=== PATIENT | female | born 1980 | race Caucasian/White ===

== ENCOUNTER 2019-05-13 15:27 | Emergency (ER) | payer OTHER ==
[2019-05-13 15:39] VITALS: BMI 29.0
[2019-05-13] MEDS ORDERED: FAMOTIDINE 20 MG/50 ML IVPB 20 MG/50 ML MG IVPB ONE ×2 (16:23→16:42)
[2019-05-13] MEDS ORDERED: ONDANSETRON 4 MG/2 ML VIAL IVPUSH ONE (16:23)
[2019-05-13] MEDS ORDERED: SODIUM CHLORIDE 1,000 ML IV STA (16:23)
[2019-05-13] MEDS ORDERED: ONDANSETRON 4 MG/2 ML VIAL ONE (16:29)
[2019-05-13 16:48] LABS: EOS % 2.1 % (0-4.5); RDW 13.5 % (11.6-15.6)
[2019-05-13 16:54] LABS: BASO % 0.5 % (0-2.0); HEMATOCRIT 39.8 % (32.4-45.2); HEMOGLOBIN 13.3 GM/dL (10.7-15.3); LYMPH % 31.3 % (8-40); MCH 29.2 pg (25.7-33.7); MCHC 33.5 g/dl (32.0-36.0); MEAN CELL VOLUME 87.2 fl (80-96); MEAN PLT VOLUME 8.5 fl (7.5-11.1); MONO % 8.2 % (3.8-10.2); NEUT % 57.9 % (42.8-82.8); PLATELET COUNT 279 K/MM3 (134-434); RBC 4.56 M/mm3 (3.60-5.2); WHITE BLOOD COUNT 6.1 K/mm3 (4.0-10.0)
--- NOTE | 2019-05-13 17:12 | PDOC ---
History of Present Illness - General Chief Complaint: Pain Stated Complaint: ABD PAIN Time Seen by Provider: 05/13/19 16:08 History Source: Patient, Family - History of Present Illness Initial Comments: 05/13/19 17:09 Pt is a 39 y/o female Who presents to the ED with complaint of epigastric abdominal pain for 2 days. She states the pain does not radiate. It is not associated with what she eats. She denies any vomiting or diarrhea. She denies any fevers or chills. She states she is still able to eat normally. She denies any back pain or dysuria. She denies any past medical history or allergies to medications. She has not taken anything to help with her pain. Past History - Past Medical History Allergies/Adverse Reactions: Allergies Allergy/AdvReac Type Severity Reaction Status Date / Time No Known Allergies Allergy Verified 05/13/19 15:39 Home Medications: Ambulatory Orders Famotidine [Pepcid] 20 mg PO BID 15 Days #30 tablet 05/13/19 COPD: No - Psycho Social/Smoking Cessation Hx Smoking History: Never smoked Review of Systems - Review of Systems Comments:: 05/13/19 17:14 - Review of Systems Able to Perform ROS?: Yes Constitutional: No: Fever, Chills, Loss of Appetite, Night Sweats, Weakness HEENTM: No: Eye Pain, Vision changes, Ear Pain, Throat Pain, Throat Swelling, Mouth Pain, Difficulty Swallowing Respiratory: No: Cough, Shortness of Breath, Wheezing, Sputum Production Cardiac (ROS): No: Chest Pain, Chest Tightness, Palpitations, Irregular Heart Beat, Edema ABD/GI: No: Nausea, Vomiting, Diarrhea, + Epigastric Abdominal Pain : No Dysuria, No Hematuria, No Frequency, No Urgency, No Vaginal Discharge/ Pain Musculoskeletal: No: Muscle Pain, Back Pain, Joint Pain, Muscle Weakness, Neck Pain Integumentary: No: Lesions, Rash Neurological: No: Headache, Numbness, Tingling, Weakness, Speech Difficulties *Physical Exam - Vital Signs Last Vital Signs Temp Pulse Resp BP Pulse Ox 97.9 F 73 18 116/68 99 05/13/19 15:37 05/13/19 15:37 05/13/19 15:37 05/13/19 15:37 05/13/19 15:37 - Physical Exam 05/13/19 17:17 - Physical Exam General Appearance: Nourished, Appropriately Dressed, No Distress HEENT: EOMI, Normal Voice, No Pharyngeal Erythema, No Muffled/Hoarse voice, No Tonsillar Exudate, No Tonsillar Erythema, No Nasal Congestion, No Rhinorrhea, Hearing Grossly Normal Neck: Supple, No Lymphadenopathy, No Decreased range of motion Respiratory/Chest: Lungs Clear, Normal Breath Sounds. No Respiratory Distress, No Accessory Muscle Use Cardiovascular: Regular Rhythm, Regular Rate, S1, S2 Gastrointestinal/Abdominal: Normal Bowel Sounds, Soft, No Rebound, No Rigidity; Positive epigastric abdominal pain to palpation with mild guarding Musculoskeletal: Normal Inspection. No Decreased Range of Motion Extremity: Normal Capillary Refill, Normal Inspection Integumentary: Normal Color, Dry. No Rash Neurologic: prn occupational therapist II-XII NML intact, Fully Oriented, Alert, Normal Mood/Affect, Normal Response ED Treatment Course - LABORATORY CBC & Chemistry Diagram: 05/13/19 16:44 05/13/19 16:44 - ADDITIONAL ORDERS Additional order review: 05/13/19 16:44 RBC 4.56 MCV 87.2 MCHC 33.5 RDW 13.5 MPV 8.5 Neutrophils % 57.9 Lymphocytes % 31.3 Monocytes % 8.2 Eosinophils % 2.1 Basophils % 0.5 05/13/19 17:31 Laboratory Tests 05/13/19 05/13/19 05/13/19 16:44 16:44 16:44 WBC 6.1 RBC 4.56 Hgb 13.3 Hct 39.8 MCV 87.2 MCH 29.2 MCHC 33.5 RDW 13.5 Plt Count 279 MPV 8.5 Absolute Neuts (auto) 3.5 Neutrophils % 57.9 Lymphocytes % 31.3 Monocytes % 8.2 Eosinophils % 2.1 Basophils % 0.5 Nucleated RBC % 0 Sodium 141 Potassium 3.8 Chloride 109 H Carbon Dioxide 26 Anion Gap 6 L BUN 12.0 Creatinine 0.6 Est GFR (CKD-EPI)AfAm 131.22 Est GFR (CKD-EPI)NonAf 113.22 Random Glucose 101 Calcium 8.7 Total Bilirubin 0.2 AST 15 ALT 30 Alkaline Phosphatase 89 Total Protein 7.1 Albumin 3.8 Lipase 121 - Medications Given in the ED: ED Medications Discontinued Medications Generic Name Dose Route Start Last Admin Trade Name Freq PRN Reason Stop Dose Admin Famotidine/Sodium Chloride 20 mg in 50 mls @ 100 mls/hr 05/13/19 16:23 16:42 Pepcid 20 Mg Premixed Ivpb - IVPB 05/13/19 16:52 100 mls/hr ONCE ONE Administration Ondansetron HCl 4 mg 05/13/19 16:23 05/13/19 16:42 Zofran Injection IVPUSH 05/13/19 16:24 4 mg ONCE ONE Administration Medical Decision Making - Medical Decision Making 05/13/19 17:33 The patient states that she is feeling well and she only has a small amount of pain remaining. We will trial her with a p.o. challenge and see how she does. If she tolerates a p.o. challenge we will discharge the patient on Pepcid and have her follow-up with her primary doctor. Her labs have been reviewed and they are unremarkable. 05/13/19 18:01 Patient doing well and tolerated her p.o. challenge. We will discharge the patient with a prescription for Pepcid. She will follow-up with her primary doctor within 1 to 2 days for repeat evaluation. She understands and agrees with treatment plan and the patient stable for discharge. Discharge - Discharge Information Problems reviewed: Yes Clinical Impression/Diagnosis: Dyspepsia Condition: Stable Disposition: HOME - Additional Discharge Information Prescriptions: Famotidine [Pepcid] 20 mg PO BID 15 Days #30 tablet - Follow up/Referral - Patient Discharge Instructions Patient Printed Discharge Instructions: DI for Dyspepsia Additional Instructions: Drink plenty of fluids and eat a bland diet. Avoid foods that are spicy, acidic , high in fat, caffeinated to help prevent the symptoms from reoccurring. Take the Pepcid as prescribed to help settle the stomach. Follow-up with your primary doctor within 1 to 2 days for repeat evaluation. Print Language: ESTONIAN - Post Discharge Activity Work/Back to School Note: Back to Work
[2019-05-13 17:22] LABS: ALBUMIN 3.8 g/dl (3.4-5.0); BILIRUBIN,TOTAL 0.2 mg/dL (0.2-1); CALCIUM 8.7 mg/dL (8.5-10.1); CREATININE 0.6 mg/dL (0.55-1.3); POTASSIUM 3.8 mmol/L (3.5-5.1); TOT PROT 7.1 g/dl (6.4-8.2)
[2019-05-13 18:46] VITALS: BP 116/78; PULSE 72; TEMP 98.2
== END 2019-05-13 18:45 | disposition home or self-care (01) ==
LOC: JER 15:27
PROC: 3E033GC Introduction of Other Therapeutic Substance into Peripheral Vein, Percutaneous Approach (ICD-10-PCS; principal; 2019-05-13)
PROC: 3E033GC Introduction of Other Therapeutic Substance into Peripheral Vein, Percutaneous Approach (ICD-10-PCS; 2019-05-13)
DX: R10.13 Epigastric pain (principal)
CPT/HCPCS: 36415; 80053; 83690; 85025; 96365; 96375; 99282-25; J7030

== ENCOUNTER 2022-05-18 09:16 | Emergency (ER) | payer OTHER ==
[2022-05-18 09:19] VITALS: BP 120/72; PULSE 82; RESP 20; TEMP 98.7; BMI 28.5
[2022-05-18] MEDS ORDERED: ACETAMINOPHEN 325 MG TABLET (FP) PO ONE (10:15)
[2022-05-18] MEDS ORDERED: FAMOTIDINE 10 MG TABLET PO ONE (10:15)
[2022-05-18] MEDS ORDERED: FAMOTIDINE 10 MG TABLET ONE (10:30)
[2022-05-18] MEDS ORDERED: ACETAMINOPHEN 325 MG TABLET (FP) ONE (10:30)
[2022-05-18 13:26] LABS: BASO % 0.2 % (0-2.0); HEMATOCRIT 39.8 % (32.4-45.2); HEMOGLOBIN 13.3 GM/dL (10.7-15.3); LYMPH % 17.7 % (8-40); MCH 29.3 pg (25.7-33.7); MCHC 33.4 g/dl (32.0-36.0); MEAN CELL VOLUME 87.7 fl (80-96); MEAN PLT VOLUME 8.4 fl (7.5-11.1); MONO % 6.6 % (3.8-10.2); NEUT % 74.5 % (42.8-82.8); PLATELET COUNT 215 10^3/uL (134-434); RBC 4.54 M/mm3 (3.60-5.2); RDW 13.7 % (11.6-15.6); WHITE BLOOD COUNT 6.3 K/mm3 (4.0-10.0)
[2022-05-18 14:07] LABS: CALCIUM 8.2 mg/dL (8.5-10.1)
[2022-05-18 14:08] LABS: ALBUMIN 3.6 g/dl (3.4-5.0); BLOOD UREA NITROGEN 10.8 mg/dL (7-18)
[2022-05-18 14:13] LABS: TOT PROT 6.7 g/dl (6.4-8.2)
[2022-05-18 14:24] LABS: BILIRUBIN,TOTAL 0.5 mg/dL (0.2-1); CREATININE 0.5 mg/dL (0.55-1.3)
== END 2022-05-18 14:49 | disposition home or self-care (01) ==
LOC: JER 09:16
DX: K80.50 Calculus of bile duct without cholangitis or cholecystitis without obstruction (principal)
CPT/HCPCS: 36415; 76705-TC; 80053; 85025; 99284-25